=== PATIENT | female | born 1960 | race Caucasian/White ===

== ENCOUNTER 2022-06-13 18:16 | Emergency (ER) | payer BC ==
[~2022-06-13] VITALS: Ht 160 cm; Wt 59.0 kg
[2022-06-13] MEDS ORDERED: IBUPROFEN 600 MG TABLET PO ONE (18:30)
--- NOTE | 2022-06-13 18:45 | NUR ---
pt roomed. xray at bedside
[2022-06-13] MEDS ORDERED: IBUPROFEN 600 MG TABLET ONE (18:47)
--- NOTE | 2022-06-13 19:05 | NUR ---
CHANGE OF SHIFT REPORT FROM ADALID CASTANEDA. A/O X4. NAD NOTED.
--- NOTE | 2022-06-13 19:22 | NUR ---
DR. ESPINOSA AT BEDSIDE.
[2022-06-13 20:28] VITALS: BP 130/72
== END 2022-06-13 20:21 | disposition home or self-care (01) ==
LOC: ER 18:16
DX: S82.832A Other fracture of upper and lower end of left fibula, initial encounter for closed fracture (principal); W01.0XXA Fall on same level from slipping, tripping and stumbling without subsequent striking against object, initial encounter; Y93.01 Activity, walking, marching and hiking; Y92.89 Other specified places as the place of occurrence of the external cause; Z85.3 Personal history of malignant neoplasm of breast; Z90.10 Acquired absence of unspecified breast and nipple
CPT/HCPCS: 73590; 73610; 73630; A4663